=== PATIENT | female | born 1990 | race Caucasian/White ===

== ENCOUNTER 2020-11-13 13:47 | Observation (INO) | payer OTHER ==
[~2020-11-13] VITALS: Ht 172.7 cm; Wt 85.0 kg
--- NOTE | 2020-11-13 14:01 | NUR ---
PT AMBULATORY TO ROOM FROM TRIAGE.
[2020-11-13 15:08] LABS: URINE BILIRUBIN - DIPSTICK NEGATIVE (NEGATIVE); URINE BLOOD DIPSTICK NEGATIVE (NEGATIVE); URINE COLOR YELLOW; URINE GLUCOSE - DIPSTICK NEGATIVE (NEGATIVE); URINE KETONE NEGATIVE (NEGATIVE); URINE PROTEIN - DIPSTICK NEGATIVE (NEG-TRACE); URINE SPECIFIC GRAVITY 1.025; URINE UROBILINOGEN - DIPSTICK 0.2 E.U./dL (0.2)
[2020-11-13 15:08] LABS: HEMATOCRIT 39.4 % (37.0-47.0); HEMOGLOBIN 13.6 g/dl (12.0-16.0); IMMATURE GRANULOCYTES 0.1 % (0.0-5.0); MEAN CELL VOLUME 89.5 fL CALC (80.0-100.0); MEAN CORPUSCULAR HGB 30.9 pG CALC (26.0-32.0); MEAN CORPUSCULAR HGB CONC 34.5 g/dL CAL (32.0-36.0); NEUT# 9.67 thou/uL (2.00-7.15); RED BLOOD COUNT 4.4 mill/uL (4.20-5.60); RED CELL DISTRI WIDTH 11.7 % (11.5-15.5)
[2020-11-13 15:10] LABS: URINE LEUK ESTERASE SMALL (NEGATIVE); URINE NITRITE - DIPSTICK NEGATIVE (Negative)
--- NOTE | 2020-11-13 15:15 | NUR ---
PT AWAITING RESULTS
[2020-11-13 15:27] LABS: URINE SQUAMOUS EPITHELIAL CELL FEW EPI/hpf (0-FEW)
[2020-11-13 15:28] LABS: ALBUMIN 4.6 g/dL (3.2-5.0); ALKALINE PHOSPHATASE 48 u/l (38-126); ANION GAP 14 (6-22 (CALC)); BILIRUBIN, TOTAL 0.6 mg/dL (0.0-1.4); BUN 11 mg/dL (7-17); BUN/CREATININE RATIO 13 (12-20 (CALC)); CARBON DIOXIDE 24 mmol/l (22-30); CHLORIDE 102 mmol/l (95-108); CREATININE 0.9 mg/dL (0.5-1.0); GFR > 60 ML/MIN (>=60 (CALC)); GFR FOR AFR.AMER. > 60 ML/MIN (>=60 (CALC)); LIPASE 63 u/l (23-300); POTASSIUM 3.9 mmol/l (3.5-5.1); SGOT/AST 24 u/l (14-36); SODIUM 136 mmol/l (137-146); TOTAL PROTEIN 8.2 g/dL (6.3-8.2)
--- NOTE | 2020-11-13 16:30 | NUR ---
PT COMFORTABLE, NS RUNNING IV LAC
--- NOTE | 2020-11-13 18:00 | NUR ---
PT AWAITING US FOR SCAN, VSS
--- NOTE | 2020-11-13 22:00 | NUR ---
RESTING QUIETLY NAD AWAITING TEST RESULTS.
--- NOTE | 2020-11-13 23:00 | NUR ---
AWAITING DISPO. WATCHING TV
[2020-11-13 23:25] VITALS: BP 120/75
--- NOTE | 2020-11-13 23:25 | NUR ---
Admission Note Report Given to: HUAN Transported by: X Wheelchair Stretcher Transported with: X Nurse Transporter X Patent IV O2 Line Puller Location: ICU X [facility]
--- NOTE | 2020-11-14 | NUR ---
PATIENT ADMITTED FROM ER VIA WHELLCHAIR WITH ER STAFF IN ATTENDANCE. PATIENT IS ABLE TO TRANSFER TO BED WITHOUT ANY DIFFICULTY. PATIENT IS STEADY ON HER FEET. AWAKE ALERT AND ORIENTEDX3-ADMITTED FOR ABD PAIN. STATES THAT SHE IS FEELING A LITTLE BETTER AT THIS TIME WITH ABD PAIN AT 3/10 ON PAIN SCALE. DENIES ANY NAUSEA AT THIS TIME. INSTRUCTED NPO AT THIS TIME-VERBALIZES UNDERSTANDING. IV SITE TO LAC INTACT-HEALTHY SITE WITH GOOD BLOOD RETURN. IVF LR HUNG AND INFUSING ORDERED. LBM WAS LAST NIGHT 11/13. DENIES ANY DIFFICULTY WITH URINATION. LUNGS ARE CLEAR. ABD SOFT WITH ACTIVE BS. NO PERIPHERAL EDEMA-PULSES PALPABLE. ORIENTED TO ROOM AND SURROUNDINGS. INSTRUCTED ON U SE OF NURSE CALL LIGHT SYSTEM, TV REMOTE AND PHONE. SAFETY PRECAUTIONS REINFORCED. CALL LIGHT IN REACH. WILL CONT TO MONITOR.
--- NOTE | 2020-11-14 00:30 | NUR ---
MEDICATED FOR HEADACHE WITH TYLENOL 650MG PO FOR HEADACHE WITH SIP OF WATER. RESTING IN BED AT THIS TIME. CALL LIGHT IN REACH. WILL CONT TO MONITOR.
[2020-11-14 04:00] VITALS: BP 99/61
--- NOTE | 2020-11-14 04:41 | NUR ---
PATIENT RESTING IN BED AT THIS TIME APPEARS SLEEPING AT THIS TIME WITH EYES CLOSED. RESPS ARE EVEN AND UNLABORED. REMAINS NPO AT THIS TIME. IVF LR PATENT AND INFUSING VIA LAC SITE ORDERED. CALL LIGHT IN REACH. WILL CONT TO MONITOR.
[2020-11-14 06:35] LABS: HEMATOCRIT 36.5 % (37.0-47.0); HEMOGLOBIN 12.3 g/dl (12.0-16.0); MEAN CORPUSCULAR HGB 30.7 pG CALC (26.0-32.0); MEAN CORPUSCULAR HGB CONC 33.7 g/dL CAL (32.0-36.0); RED BLOOD COUNT 4.01 mill/uL (4.20-5.60); RED CELL DISTRI WIDTH 11.8 % (11.5-15.5)
[2020-11-14 06:44] LABS: ANION GAP 12 (6-22 (CALC)); BUN 10 mg/dL (7-17); BUN/CREATININE RATIO 13 (12-20 (CALC)); CARBON DIOXIDE 23 mmol/l (22-30); CHLORIDE 105 mmol/l (95-108); CREATININE 0.8 mg/dL (0.5-1.0); GFR > 60 ML/MIN (>=60 (CALC)); GFR FOR AFR.AMER. > 60 ML/MIN (>=60 (CALC)); MAGNESIUM 2.1 mg/dL (1.6-2.3); SODIUM 136 mmol/l (137-146)
--- NOTE | 2020-11-14 06:55 | NUR ---
REPORT FROM TALAT CHANG. ASSUMED PT CARE.
[2020-11-14 07:30] VITALS: BP 113/63
--- NOTE | 2020-11-14 07:30 | NUR ---
PT NOTED RESTING IN BED. WAKES EASILY. ALERT AND ORIENTED X4. NO APPARENT DISTRESS NOTED. RESPIRATIONS EVEN AND UNLABORED. PT VERBALIZED MILD CRAMPING IN LOWER ABD. PT REMAINS NPO. IV SITE APPEARS HEALTHY. VSS. NO CURRENT WANTS OR NEEDS. DISCUSSED POC. PT VERBALIZED UNDERSTANDING. CALL LIGHT WITHIN REACH. WILL CONTINUE TO MONITOR.
[2020-11-14 10:27] VITALS: BP 117/72
[2020-11-14 11:00] VITALS: BP 129/100
--- NOTE | 2020-11-14 11:15 | NUR ---
PHYSICIAN AT BEDSIDE.
--- NOTE | 2020-11-14 13:21 | NUR ---
DR. ULLOA AT BEDSIDE.
--- NOTE | 2020-11-14 14:26 | NUR ---
ICE WATER PROVIDED UPON REQUEST. PT DENIES ANY PAIN OR DISCOMFORT AT THIS TIME. CALL LIGHT WITHIN REACH. WILL CONTINUE TO MONITOR.
[2020-11-14 15:00] VITALS: BP 118/68
--- NOTE | 2020-11-14 18:20 | NUR ---
PT RESTING IN BED. NO APPARENT DISTRESS NOTED. PT DENIES ANY PAIN OR DISCOMFORT. NO CURRENT WANTS OR NEEDS. CALL LIGHT WITHIN REACH. WILL CONTINUE TO MONITOR.
[2020-11-14 18:54] VITALS: BP 120/77
--- NOTE | 2020-11-14 20:00 | NUR ---
PHYSICAL ASSESMENT COMPLETE. PT CURRENTLY DENIES PAIN OR DISCOMFORT. SCHEDULED MEDICATIONS AND PRN MEDICATION ADMINISTERED, SEE E-MAR. PT DENIES ANY NEEDS AT THIS TIME. PLAN OF CARE REVIEWED, PT DENIES QUESTIONS, VERBALIZES UNDERSTANDING. ITEMS WITHIN REACH, BED LOCKED IN LOW POSITION W/ BEDRAILS UP X2. CALL KILLIAN WITHIN REACH, AGREES TO CALL PRN.
--- NOTE | 2020-11-15 01:37 | NUR ---
PT LAYING IN BED WITH EYES CLOSED, APPEARS TO BE SLEEPING, APPEARS COMFORTABLE AND IN NO DISTRESS. RESPIRATIONS REGULAR AND UNLABORED. ITEMS REMAIN WITHIN REACH, CALL KILLIAN REMAINS WITHIN REACH. BED REMAINS LOCKED AND IN LOW POSITION WITH BEDRAILS UP X2. WILL CONTINUE TO MONITOR.
[2020-11-15 04:00] VITALS: BP 111/67
--- NOTE | 2020-11-15 04:00 | NUR ---
PT RESTING IN BED, NO SIGNS OF DISTRESS NOTED, RESP EVEN AND UNLABORED. PT VOICES NO NEEDS OR COMPLAINTS AT THIS TIME. CALL LIGHT IN REACH, CONTINUE TO MONITOR.
[2020-11-15 05:33] LABS: HEMATOCRIT 35.6 % (37.0-47.0); HEMOGLOBIN 12.2 g/dl (12.0-16.0); MEAN CELL VOLUME 91.5 fL CALC (80.0-100.0); MEAN CORPUSCULAR HGB 31.4 pG CALC (26.0-32.0); MEAN CORPUSCULAR HGB CONC 34.3 g/dL CAL (32.0-36.0); RED BLOOD COUNT 3.89 mill/uL (4.20-5.60); RED CELL DISTRI WIDTH 11.6 % (11.5-15.5)
[2020-11-15 05:57] LABS: ANION GAP 15 (6-22 (CALC)); BUN 9 mg/dL (7-17); BUN/CREATININE RATIO 11 (12-20 (CALC)); CARBON DIOXIDE 22 mmol/l (22-30); CHLORIDE 103 mmol/l (95-108); CREATININE 0.8 mg/dL (0.5-1.0); GFR > 60 ML/MIN (>=60 (CALC)); GFR FOR AFR.AMER. > 60 ML/MIN (>=60 (CALC)); POTASSIUM 4.5 mmol/l (3.5-5.1); SODIUM 135 mmol/l (137-146)
[2020-11-15 08:24] VITALS: BP 110/64
--- NOTE | 2020-11-15 08:24 | NUR ---
ASSESSMENT DONE. PATIENT IS ALERT AND ORIENT X3. PATIENT IS NPO. PATIENT STATED PAIN IN ABD 2 BUT REFUSED PAIN MEDICATION AT THIS TIME. RESPS EVEN AND UNLABORED. LR INFUSING WELL. PATIENT DENIES AN NEEDS AT THIS TIME. CALL LIGHT IN REACH. CALLED DR. ULLOA TO GAVE HIM AN UPDATE ON PATIENT. ORDERS RECEIVED.
--- NOTE | 2020-11-15 11:05 | NUR ---
DR. ULLOA AT BEDSIDE TO ASSESS PATIENT.
--- NOTE | 2020-11-15 12:30 | NUR ---
PATIENT IS EATING HER LUNCH WITH NO DISTRESS NOTED. PATIENT DENIES PAIN OR NEEDS AT THIS TIME. CALL LIGHT IN REACH.
--- NOTE | 2020-11-15 14:14 | NUR ---
Discharge instructions given. Patient verbalizes understanding of same. Discharged in stable condition via Wheelchair to Home with staff. All belongings sent with pt.
== END 2020-11-15 14:14 | disposition home or self-care (01) | DRG 392 ==
LOC: ED 13:47 → ED-I 21:20 → ED 21:38 → MS2 21:48
PROVIDERS: Family Medicine; Nurse Practitioner; ADMIT Hospitalist; ATTEND Hospitalist
DX: R10.31 Right lower quadrant pain (principal); R11.2 Nausea with vomiting, unspecified; D72.829 Elevated white blood cell count, unspecified; Z20.822 Contact with and (suspected) exposure to COVID-19
CPT/HCPCS: G0378; J1650; Q9967; S0164